=== PATIENT | female | born 1970 | race Caucasian/White ===

== ENCOUNTER 2018-08-07 17:36 | Inpatient (IN) | payer OTHER, MEDICAID ==
[~2018-08-07] VITALS: Ht 157.5 cm; Wt 72.6 kg
[2018-08-07] MEDS ORDERED: FAMOTIDINE PF 20 MG/2 ML VIAL IVP ONE (17:45)
[2018-08-07 17:55] VITALS: BP_SYST 165
[2018-08-07] MEDS ORDERED: fentaNYL CITRATE/PF 100 MCG/2 ML AMP IVP ONE (18:00)
[2018-08-07] MEDS ORDERED: ONDANSETRON HCL 4 MG/2 ML VIAL IVP ONE (18:00)
[2018-08-07 18:07] LABS: BILIRUBIN,URINE NEGATIVE (NEGATIVE); BLOOD, URINE NEGATIVE (NEGATIVE); CLARITY/URINE CLEAR (CLEAR); COLOR,URINE YELLOW (YELLOW); GLUCOSE,URINE NEGATIVE (NEGATIVE); KETONES,URINE 2+ (NEGATIVE); LEUKOCYTE ESTERASE ,URINE NEGATIVE (NEGATIVE); NITRITE, URINE NEGATIVE (NEGATIVE); PH,URINE 7.5 (5.0-8.0); PROTEIN URINE TRACE (NEGATIVE); UROBILINOGEN,URINE 0.2 (0.2-1.0)
[2018-08-07 18:11] LABS: RED BLOOD CELL COUNT(AUTO) 4.44 MIL/uL (4.2-6.2); WHITE BLOOD COUNT (AUTO) 11.5 K/uL (4.8-10.8)
[2018-08-07 18:13] LABS: HEMATOCRIT 41.3 % (36-48); HEMOGLOBIN 14.1 g/dL (12.0-16.0); LYMPHOCYTES % (AUTO) 6.6 % (20.5-51.5); MEAN CORPUSCULAR HEMOGLOBIN 32 pg (27-31); MEAN CORPUSCULAR HGB CONC 34 % (32-36); MEAN CORPUSCULAR VOLUME 93 fL (79.0-98.0); NEUTROPHILS % (AUTO) 90.5 % (40.0-70.0); PLATELET COUNT (AUTO) 304 K/uL (130-430); RED CELL DISTRIBUTION WIDTH 14.3 % (9.0-15.0)
[2018-08-07 18:14] LABS: BASOPHILS # (AUTO) 0.1 K/uL (0.0-0.2); BASOPHILS % (AUTO) 0.5 % (0.0-2.0); LYMPHOCYTES # (AUTO) 0.8 K/uL (1.0-5.5); MONOCYTES # (AUTO) 0.3 K/uL (0.0-1.0); MONOCYTES % (AUTO) 2.4 % (1.7-9.3); NEUTROPHILS # (AUTO) 10.4 K/uL (1.8-7.7)
[2018-08-07 18:23] LABS: BACTERIA,URINE FEW /HPF (None Seen); MUCUS,URINE None Seen /LPF (None Seen); RBC,URINE 0-3 /HPF (0-3); WBC,URINE 0-3 /HPF (0-3)
[2018-08-07] MEDS ORDERED: LORazepam 2 MG/ML VIAL (FOR ER USE) IVP ONE (18:30)
[2018-08-07 18:39] LABS: CALCIUM 9.3 mg/dL (8.4-11.0); CREATININE 0.81 mg/dL (0.55-1.30); POTASSIUM 3.7 mmol/L (3.5-5.1)
[2018-08-07 18:43] LABS: ALBUMIN 4.3 g/dL (3.4-4.8); INR 0.9 (0.8-1.2); PROTHROMBIN TIME 9.3 SECS (9.5-12.5); TOTAL BILIRUBIN 0.7 mg/dL (0.0-1.0)
[2018-08-07 18:56] LABS: BARBITURATE, URINE NEGATIVE (NEG <=200); BENZODIAZEPINE, URINE POSITIVE (NEG <=150); CANNABINOID, URINE POSITIVE (NEG <=50); COCAINE, URINE NEGATIVE (NEG <=150); METHAMPHETAMINES SCREEN,URINE NEGATIVE (NEG <=500); OPIATE, URINE NEGATIVE (NEG <=100); PHENCYCLIDINE SCREEN,URINE NEGATIVE (NEG <=25); UR TRICYCLIC ANTIDEPRESSANTS NEGATIVE (NEG <=300); URINE AMPHETAMINE NEGATIVE (NEG <=500); URINE METHADONE NEGATIVE (NEG <=200); URINE OXYCODONE SCREEN NEGATIVE (NEG <=100); URINE PROPOXYPHENE SCREEN NEGATIVE (NEG <=300)
[2018-08-07 19:20] LABS: CKMB RELATIVE INDEX 1.1 (0.0-2.9); CREATINE KINASE MB 2.2 ng/mL (0-3.6)
[2018-08-07] MEDS ORDERED: KETAMINE 30 MG/3 ML SYRINGE IVP ONE (19:45)
[2018-08-07] MEDS ORDERED: NACL 0.9% 1,000 ML IV ONE (21:00)
[2018-08-07] MEDS ORDERED: MAGNESIUM CITRATE 300 ML ORAL SOLUTION PO ONE (21:00)
[2018-08-07] MEDS ORDERED: GLYCERIN 1 SUPP.RECT (ADULT) RC ONE (21:00)
[2018-08-07] MEDS ORDERED: LORazepam 2 MG/ML VIAL IVP ONE (22:00)
[2018-08-07] MEDS ORDERED: GLYCERIN 1 SUPP.RECT (PEDS) RC ONE (22:02)
[2018-08-08] MEDS ORDERED: KCL 20 mEq in D5/0.45NS 1000mL 1,000 ML IV SCH (00:15)
[2018-08-08] MEDS ORDERED: ONDANSETRON HCL 4 MG/2 ML VIAL IVP PRN (00:15)
[2018-08-08] MEDS ORDERED: LORazepam 2 MG/ML VIAL (FOR ER USE) IVP ONE (00:15)
[2018-08-08] MEDS ORDERED: ONDA4TAB5 PO (00:22)
[2018-08-08] MEDS ORDERED: PROZAC PO (00:22)
[2018-08-08 00:48] VITALS: BP_SYST 147
[2018-08-08] MEDS ORDERED: KCL 20 mEq in D5/0.45NS 1000mL 1,000 ML IV ONE (03:40)
[2018-08-08] MEDS: ALPRAZolam 0.25 MG TABLET PO PRN ×2 (04:21→10:44)
[2018-08-08 08:00] VITALS: BP_SYST 160
[2018-08-08] MEDS ORDERED: MILK OF MAGNESIA 30 ML UDC PO SCH (09:00)
[2018-08-08] MEDS ORDERED: ACETAMINOPHEN 325 MG TABLET PO ONE (10:30)
[2018-08-08] MEDS ORDERED: MAGNESIUM CITRATE 300 ML ORAL SOLUTION PO ONE (10:45)
[2018-08-08 12:33] VITALS: BP_SYST 133
[2018-08-08] MEDS ORDERED: ACETAMINOPHEN 325 MG TABLET PO PRN (13:30)
[2018-08-08] MEDS ORDERED: NA PHOS,M-B/NA PHOS,DI-BA 118 ML (FLEET ENEMA) RC ONE (13:30)
[2018-08-08] MEDS ORDERED: ONDANSETRON 4 MG ODT TAB PO PRN ×3 (14:00→14:30)
[2018-08-08] MEDS ORDERED: MINERAL OIL 133 ML ENEMA RC ONE (14:45)
[2018-08-08 16:12] VITALS: BP_SYST 131
[2018-08-08 18:46] VITALS: BP_SYST 131
[2018-08-08] MEDS ORDERED: SENNOSIDES 8.6 MG TABLET PO SCH (21:00)
[2018-08-09] MEDS ORDERED: PROZAC PO SCH (09:00)
== END 2018-08-08 18:55 | disposition home or self-care (01) | DRG 392 ==
LOC: SED 17:36 → SMU 08-08 00:04 → OBSVTOIN 08-08 15:02
PROVIDERS: ADMIT Family Medicine; ATTEND Family Medicine
DX: R10.9 Unspecified abdominal pain (principal); K59.09 Other constipation; G89.29 Other chronic pain; F32.9 Major depressive disorder, single episode, unspecified; E78.5 Hyperlipidemia, unspecified; F43.10 Post-traumatic stress disorder, unspecified; F41.9 Anxiety disorder, unspecified; K59.00 Constipation, unspecified
CPT/HCPCS: 36415; 71045; 80053; 80061; 80307; 81000-TC; 82550-TC; 82553-TC; 83690-TC; 85025; 85610-TC; 85730-TC; 93005; 96361; 96374; 96375; 99285; G0378; G0482; J2060; J2405; J3010; J3490